=== PATIENT | male | born 1975 | race Caucasian/White ===

== ENCOUNTER 2019-08-22 21:02 | Emergency (ER) | payer MEDICAID ==
[~2019-08-22] VITALS: Ht 170.2 cm; Wt 89.4 kg
[2019-08-22 21:09] VITALS: Ht 170.2 cm; Wt 89.4 kg
[2019-08-22 22:34] VITALS: BP 120/60
== END 2019-08-22 22:35 | disposition home or self-care (01) ==
LOC: ED 21:02
DX: S20.212A Contusion of left front wall of thorax, initial encounter (principal); E78.00 Pure hypercholesterolemia, unspecified; W01.0XXA Fall on same level from slipping, tripping and stumbling without subsequent striking against object, initial encounter; Y93.89 Activity, other specified; Y92.89 Other specified places as the place of occurrence of the external cause; Y99.8 Other external cause status